=== PATIENT | male | born 1995 | race Caucasian/White ===

== ENCOUNTER 2018-03-18 16:56 | Emergency (ER) | payer OTHER ==
[~2018-03-18] VITALS: Ht 175.3 cm; Wt 56.7 kg
--- NOTE | 2018-03-18 18:13 | PHYS DOC ---
Past History Past Medical History: Anxiety, Bipolar, Depression Past Surgical History: No Surgical History Alcohol Use: Occasionally Drug Use: None Adult General Chief Complaint Chief Complaint: LACERATION/AVULSION HPI HPI Patient is a 22-year-old male present with a laceration to the left pinky finger occurred 3 hours ago as he was working with a mike he cut on something sharp no foreign body feeling. Mild numbness just around the site of the incision only no limitation of movement Review of Systems Review of Systems Physical Exam Physical Exam Constitutional: Well developed, well nourished, no acute distress, non-toxic appearance. [] HENT: Normocephalic, atraumatic, bilateral external ears normal, oropharynx moist, no oral exudates, nose normal. [] Eyes: PERRLA, EOMI, conjunctiva normal, no discharge. [] Neck: Normal range of motion, no tenderness, supple, no stridor. [] Skin: Warm, dry, no erythema, no rash. [] Back: No tenderness, no CVA tenderness. [] Extremities: There is a total 4 cm V-shaped laceration to the dorsum of the left pinky finger there is no foreign body identified there is no tendon injury identified patient has full strength against resistance. Neurologic: Alert and oriented X 3, normal motor function, normal sensory function, no focal deficits noted. [] Psychologic: Affect normal, judgement normal, mood normal. [] Current Patient Data Vital Signs Vital Signs Date Time Temp Pulse Resp B/P (MAP) Pulse Ox O2 Delivery O2 Flow Rate FiO2 03/18/18 17:05 63 18 EKG EKG [] Radiology/Procedures Radiology/Procedures [] Course & Med Decision Making Course & Med Decision Making Pertinent Labs and Imaging studies reviewed. (See chart for details) []Laceration repair: Verbal consent was obtained lidocaine subcutaneous digital block for anesthesia was irrigated profusely the visible debris was removed no tendon injury was identified. The wound was closed with 5-0 nylon simple interrupted sutures 4 cm in total. Wound care precautions were advised rapid was applied tetanus is up-to-date return in 10 days for suture removal H and had multiple questions were answered Dragon Disclaimer Dragon Disclaimer This electronic medical record was generated, in whole or in part, using a voice recognition dictation system. Departure Departure: Impression: Primary Impression: Laceration Disposition: 01 HOME, SELF-CARE Condition: STABLE Referrals: [facility]CP[facility] (PCP) Patient Instructions: Laceration Care, Adult, [id number] CLEMENTE MULLINS MD Mar 18, 2018 18:13
== END 2018-03-18 17:48 | disposition home or self-care (01) ==
LOC: ER 16:56
DX: S61.217A Laceration without foreign body of left little finger without damage to nail, initial encounter (principal); F41.9 Anxiety disorder, unspecified; F31.9 Bipolar disorder, unspecified; W45.8XXA Other foreign body or object entering through skin, initial encounter; Y93.89 Activity, other specified; Y99.8 Other external cause status; Y92.89 Other specified places as the place of occurrence of the external cause
CPT/HCPCS: 12002; 99283

== ENCOUNTER → 2020-03-13 | Outpatient (CLI) | payer OTHER ==
--- NOTE | 2020-03-13 19:39 | RAD ---
Exam performed: 3 views left knee. Clinical indication: Left knee pain, status post injury Date of Service: 03/13/2020 Comparison: None available 3 views [LEFT] knee findings: Normal alignment of the medial and lateral tibiofemoral joint is preserved. The patellofemoral joint appears unremarkable. The articular margins are smooth. There is no fracture or dislocation. Evidence of calcific loose body or joint effusion is absent. Impression: 1. No acute radiographic abnormality seen. Electronically signed by: Kylee Cooper MD (03/13/2020 7:36 PM) [facility]
== END ==
LOC: RAD 19:02
PROVIDERS: ATTEND Family Medicine
DX: S89.92XA Unspecified injury of left lower leg, initial encounter (principal); X58.XXXA Exposure to other specified factors, initial encounter; Y92.89 Other specified places as the place of occurrence of the external cause; Y93.89 Activity, other specified; Y99.8 Other external cause status
CPT/HCPCS: 73562